=== PATIENT | female | born 1975 | race Caucasian/White ===

== ENCOUNTER 2020-05-06 02:50 | Emergency (ER) | payer SELFPAY ==
[~2020-05-06] VITALS: Ht 170.2 cm; Wt 80.0 kg
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
[2020-05-06] MEDS ORDERED: OXYC1TAB15 PO (03:10)
[2020-05-06] MEDS ORDERED: MORPHINE SULFATE 4 MG/ML DISP.SYRIN. IV ONE (03:15)
[2020-05-06] MEDS ORDERED: TETANUS AND DIPHTHERIA TOX/PF 0.5 ML VIAL. VAX IM ONE (03:15)
[2020-05-06] MEDS ORDERED: MORPHINE SULFATE 10 MG/ML SYRINGE. SQ ONE (03:15)
[2020-05-06] MEDS ORDERED: BACITRACIN ZINC TOPICAL OINT PACKET. TP ONE (03:30)
[2020-05-06 04:15] VITALS: BP 147/89
[2020-05-06] MEDS ORDERED: BUPIVACAINE PF 0.75% 10 ML VIAL ONE (04:27)
[2020-05-06] MEDS ORDERED: LIDOCAINE 2% 20 ML VIAL. ONE (04:27)
[2020-05-06] MEDS ORDERED: DIPH,PERTUSS(ACELL),TET VAC/PF 0.5 ML SYRINGE. VAX IM ONE (05:15)
== END 2020-05-06 05:15 | disposition home or self-care (01) ==
LOC: ER 02:50
DX: T25.232A Burn of second degree of left toe(s) (nail), initial encounter (principal); T25.231A Burn of second degree of right toe(s) (nail), initial encounter; T23.221A Burn of second degree of single right finger (nail) except thumb, initial encounter; Z88.6 Allergy status to analgesic agent; X08.8XXA Exposure to other specified smoke, fire and flames, initial encounter; Y93.89 Activity, other specified; Y92.89 Other specified places as the place of occurrence of the external cause; Y99.8 Other external cause status
CPT/HCPCS: 16020; 90471; 90715; 96372; 96374; 99284; J2270

== ENCOUNTER 2020-07-11 15:59 | Emergency (ER) | payer SELFPAY ==
[~2020-07-11] VITALS: Ht 170.2 cm; Wt 76.0 kg
[~2020-07-11 15:59] MED LIST: OXYC1TAB15 PO
[2020-07-11] MEDS ORDERED: 0.9 % SODIUM CHLORIDE 10 ML DISP.SYRIN. IV PRN (16:30)
[2020-07-11] MEDS ORDERED: IV NORMAL SALINE 1,000ML 1,000 ML IV ONE (16:30)
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
[2020-07-11 16:53] LABS: BASO # 0.1 x10^3/uL (0.0-0.2); BASO % 1 % (0-3); EOS # 0.1 x10^3/uL (0.0-0.7); EOS % 0 % (0-3); HEMATOCRIT 37.8 % (36.0-47.0); HEMOGLOBIN 12.5 g/dL (12.0-15.5); LYMPH % 16 % (24-48); MEAN CORPUSCULAR HEMOGLOBIN 28 pg (25-35); MEAN CORPUSCULAR HGB CONC 33 g/dL (31-37); MEAN CORPUSCULAR VOLUME 86 fL (79-100); MONO # 1.4 x10^3/uL (0.0-1.1); MONO % 11 % (0-9); NEUT # 9.2 x10^3uL (1.8-7.7); NEUT % 73 % (31-73); PLATELET COUNT 344 x10^3/uL (140-400); RED BLOOD COUNT 4.41 x10^6/uL (3.50-5.40); RED CELL DISTRIBUTION WIDTH 13.8 % (11.5-14.5); WHITE BLOOD COUNT 12.7 x10^3/uL (4.0-11.0)
[2020-07-11 16:57] LABS: CLARITY,URINE HAZY; COLOR,URINE ORANGE
[2020-07-11 16:58] LABS: BILIRUBIN,URINE MOD (NEG); GLUCOSE,URINE 100 mg/dL (NEG)
[2020-07-11 16:59] LABS: CALCIUM 9.1 mg/dL (8.5-10.1); CREATININE 1.2 mg/dL (0.6-1.0); GFR 48.6; NITRITE,URINE POS (NEG); POTASSIUM 3.5 mmol/L (3.5-5.1); UROBILINOGEN,URINE >=8.0 mg/dL (0.2 mg/dL)
[2020-07-11 17:05] LABS: ALBUMIN 3.2 g/dL (3.4-5.0); ALBUMIN/GLOBULIN RATIO 0.6 (1.0-1.7); TOTAL BILIRUBIN 0.5 mg/dL (0.2-1.0); TOTAL PROTEIN 8.4 g/dL (6.4-8.2)
[2020-07-11] MEDS ORDERED: PHEN100T82 PO (17:34)
[2020-07-11] MEDS ORDERED: CEPH500T PO (17:34)
[2020-07-11] MEDS ORDERED: PROM12.58 PO (17:34)
[2020-07-11 17:40] VITALS: BP 100/64
[2020-07-11] MEDS ORDERED: ONDANSETRON PF 4 MG/2 ML VIAL. IVP ONE (17:45)
[2020-07-11] MEDS ORDERED: cefTRIAXone IM 1 GM VIAL IM ONE (18:00)
== END 2020-07-11 17:57 | disposition home or self-care (01) ==
LOC: ER 15:59
DX: N10 Acute pyelonephritis (principal); R00.0 Tachycardia, unspecified; J45.909 Unspecified asthma, uncomplicated; E03.9 Hypothyroidism, unspecified; Z98.890 Other specified postprocedural states; Z90.710 Acquired absence of both cervix and uterus; Z88.6 Allergy status to analgesic agent
CPT/HCPCS: 36415; 80053; 81001; 83605; 85025; 87040; 87086; 96360; 96372; 99283; J0696; J7030

== ENCOUNTER 2021-01-11 06:02 | Emergency (ER) | payer SELFPAY ==
[~2021-01-11] VITALS: Ht 170.2 cm; Wt 76.0 kg
[~2021-01-11 06:02] MED LIST changes: +CEPH500T PO; +PHEN100T82 PO; +PROM12.58 PO
[2021-01-11] MEDS ORDERED: PIPERACILLIN/TAZOBACTAM 3.375 GM in IV NORMAL SALINE 50ML 50 ML IV ONE (07:00)
--- NOTE | 2021-01-11 07:19 | RAD ---
Examination: 3 views of the left second digit HISTORY: History of second digit infection, CAT bite COMPARISON: None available FINDINGS: The alignment of the second metacarpophalangeal, interphalangeal joints grossly appears unremarkable. There is no acute fracture or dislocation identified. Mild soft tissue swelling identified in the se cond digit. IMPRESSION: Mild soft tissue swelling identified in the second digit. No acute osseous findings. Electronically signed by: Aravind Chairez MD (01/11/2021 7:17 AM) [id number]
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
[2021-01-11] MEDS ORDERED: NORMAL SALINE IV ONE ×2 (07:45→08:00)
[2021-01-11] MEDS ORDERED: AMPICILLIN IV ONE ×2 (07:45→08:00)
[2021-01-11] MEDS ORDERED: SULBACTAM IV ONE ×2 (07:45→08:00)
[2021-01-11 09:40] VITALS: BP 131/92
== END 2021-01-11 10:03 | disposition short-term general hospital (02) ==
LOC: ER 06:02
DX: M65.842 Other synovitis and tenosynovitis, left hand (principal); M79.645 Pain in left finger(s); J45.909 Unspecified asthma, uncomplicated; E03.9 Hypothyroidism, unspecified; Z98.890 Other specified postprocedural states; Z90.710 Acquired absence of both cervix and uterus; Z88.6 Allergy status to analgesic agent
CPT/HCPCS: 73140; 96365; 96372; 99285; J0295; J3010

== ENCOUNTER 2021-09-09 19:45 | Emergency (ER) | payer SELFPAY ==
[~2021-09-09] VITALS: Ht 170.2 cm; Wt 76.0 kg
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
[2021-09-09 20:16] VITALS: BP 122/84
[2021-09-09] MEDS ORDERED: CEPH500C PO (20:57)
[2021-09-09] MEDS ORDERED: oxyCODONE/APAP 5/325 1 TAB TABLET PO ONE (21:00)
[2021-09-09] MEDS ORDERED: PHENAZOPYRIDINE 100 MG TABLET. PO ONE (21:00)
[2021-09-09] MEDS ORDERED: cefTRIAXone IM 1 GM VIAL IM ONE (21:00)
[2021-09-09 21:02] LABS: BILIRUBIN,URINE NEG (NEG); CLARITY,URINE HAZY; COLOR,URINE YELLOW; GLUCOSE,URINE NEG (NEG); NITRITE,URINE NEG (NEG)
[2021-09-09 21:03] LABS: BACTERIA,URINE MOD /HPF (0-FEW); RBC,URINE OCC /HPF (0-2); SQUAMOUS EPITHELIAL CELL,UR MANY /LPF; WBC,URINE >40 /HPF (0-4)
== END 2021-09-09 21:22 | disposition home or self-care (01) ==
LOC: ER 19:45
DX: R30.0 Dysuria (principal); R35.0 Frequency of micturition; J45.909 Unspecified asthma, uncomplicated; E03.9 Hypothyroidism, unspecified; Z86.718 Personal history of other venous thrombosis and embolism; Z87.440 Personal history of urinary (tract) infections; Z98.890 Other specified postprocedural states; Z90.710 Acquired absence of both cervix and uterus; Z88.6 Allergy status to analgesic agent
CPT/HCPCS: 81001; 87086; 96372; 99283; J0696

== ENCOUNTER 2021-12-02 17:12 | Emergency (ER) | payer SELFPAY ==
[~2021-12-02] VITALS: Ht 170.2 cm; Wt 87.0 kg
[~2021-12-02 17:12] MED LIST changes: +CEPH500C PO
[2021-12-02] MEDS ORDERED: SULF1TAB24 PO (17:51)
[2021-12-02] MEDS ORDERED: IBUP800T19 PO (17:51)
[2021-12-02] MEDS ORDERED: CEPH500C PO (17:51)
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
[2021-12-02 18:00] VITALS: BP 154/88
== END 2021-12-02 18:00 | disposition home or self-care (01) ==
LOC: ER 17:12
DX: L03.011 Cellulitis of right finger (principal); J45.909 Unspecified asthma, uncomplicated; E03.9 Hypothyroidism, unspecified; Z86.718 Personal history of other venous thrombosis and embolism; Z88.6 Allergy status to analgesic agent
CPT/HCPCS: 99283